=== PATIENT | male | born 1995 | race Caucasian/White ===

== ENCOUNTER 2021-11-01 08:00 | Outpatient (CLI) | payer OTHER ==
--- NOTE | 2021-11-01 22:30 | XRAY Report ---
PROCEDURE: Lumbar Spine 2 View INDICATIONS: LOW BACK PX TECHNIQUE: 3 views of the lumbar spine were acquired. COMPARISON: None. FINDINGS: Bones: 5 [id number] vertebrae are present. There is normal bony alignment. No vertebral body compression fractures. No suspicious bony lesions. Soft tissues: Overlying bowel gas pattern is normal. No suspicious soft tissue calcifications. IMPRESSION: No evidence acute bony abnormality of the lumbar spine. If clinical suspicion and/or symptoms persist, further assessment with repeat plain films or advanced imaging (e.g., CT, MRI, or bone scan) may be helpful for further assessment. Reviewed by: Juvenal Carrasco MD on 11/01/2021 10:28 PM PST Approved by: Juvenal Carrasco MD on 11/01/2021 10:28 PM PST Station ID: [id number]
== END 2021-11-01 23:59 | disposition home or self-care (01) ==
LOC: DI.N 08:00
PROVIDERS: ATTEND Physician Assistant Medical
DX: M54.50 Low back pain, unspecified (principal); G89.29 Other chronic pain

== ENCOUNTER 2023-04-26 19:46 | Outpatient (CLI) | payer OTHER ==
--- NOTE | 2023-04-27 15:12 | XRAY Report ---
PROCEDURE: Finger(s) LT INDICATIONS: OTHER SPRAIN OF LEFT LITTLE FINGER,INITIAL ENCOUNT TECHNIQUE: AP hand, 2 views of the fifth finger(s) acquired. COMPARISON: None. FINDINGS: Bones: No fractures or dislocations. No suspicious bony lesions. Soft tissues: No suspicious soft tissue calcifications or masses. IMPRESSION: No acute bony abnormality. If clinical symptoms persist, consider a follow-up exam in 7-10 days. Reviewed by: Edwin Reina MD on 04/27/2023 3:11 PM PDT Approved by: Edwin Reina MD on 04/27/2023 3:11 PM PDT Station ID: [id number]
== END 2023-04-26 19:47 | disposition home or self-care (01) ==
LOC: DI 19:46
PROVIDERS: ATTEND Physician Assistant Medical
DX: S63.697A Other sprain of left little finger, initial encounter (principal)

== ENCOUNTER 2023-05-19 19:32 | Outpatient (CLI) | payer OTHER ==
--- NOTE | 2023-05-19 21:54 | XRAY Report ---
PROCEDURE: Shuntogram INDICATIONS: SHUNT SERIES - HYDROCEPHALUS TECHNIQUE: AP and lateral views of the skull, chest and abdomen were obtained COMPARISON: None. FINDINGS: Tunneled ventricular peritoneal shunt is in appropriate position and shows no evidence of breaks thro ughout its course. Distal end is coiled in the peritoneal right lower quadrant. There is a buckling o f the catheter projecting over the abdominal right upper quadrant probably at the location of intrape ritoneal transition IMPRESSION: No evidence of break, however, there is buckling of the catheter at the right upper quadrant abdomen, probably at the location of anterior wall penetration Reviewed by: Maxim Leroy MD on 05/19/2023 8:52 PM SHANAE Approved by: Maxim Leroy MD on 05/19/2023 8:52 PM AKREINA Station ID: [id number]
== END 2023-05-19 19:33 | disposition home or self-care (01) ==
LOC: DI 19:32
PROVIDERS: ATTEND Nurse Practitioner Adult Health
DX: G91.9 Hydrocephalus, unspecified (principal)

== ENCOUNTER 2023-10-29 09:44 | Emergency (ER) | payer OTHER ==
[2023-10-29 10:13] VITALS: BP 136/82; O2SAT 98
--- NOTE | 2023-10-29 11:48 | ED Physician Documentation ---
PD HPI SKIN - Stated complaint Stated Complaint: LUMP ON HEAD - Chief complaint Chief Complaint: General - History obtained from History obtained from: Patient - History of Present Illness Timing - onset: How many days ago (3) Timing - details: Gradual onset (mbut getting bigger and much more epainful steadily.) Location: Face (mid forehead at hat line.) Quality / character: Painful, Discolored (red), Raised. No: Vesicular Associated symptoms: No: Fever, Myalgias Similar symptoms before: Has not had sx before Review of Systems Constitutional: denies: Fever, Chills PD PAST MEDICAL HISTORY - Past Medical History Past Medical History: Yes Cardiovascular: None Respiratory: None Neuro: Other Endocrine/Autoimmune: None GI: None : None HEENT: None Psych: None Musculoskeletal: None Derm: None - Past Surgical History Past Surgical History: Yes - Present Medications Home Medications: Ambulatory Orders Medication Instructions Recorded Confirmed Doxycycline Hyclate 100 mg PO BID 7 Days #14 cap 10/29/23 Fexofenadine/Pseudoephedrine 1 each PO DAILY 10/29/23 10/29/23 [Linda-D 24 Hour Tablet] Mupirocin 2% Oint [Bactroban 2% 1 applic TOP TID #15 gm 10/29/23 Oint] Pantoprazole [Protonix] 40 mg PO DAILY 10/29/23 10/29/23 - Allergies Allergies/Adverse Reactions: Allergies Allergy/AdvReac Type Severity Reaction Status Date / Time No Known Drug Allergies Allergy Verified 10/29/23 10:01 - Social History Does the pt smoke?: No Smoking Status: Never smoker Does the pt drink ETOH?: No Does the pt have substance abuse?: No - Immunizations Immunizations are current?: Yes - POLST Patient has POLST: No PD ED PE NORMAL - Vitals Vital signs reviewed: Yes - General General: Alert and oriented X 3, No acute distress, Well developed/nourished - Neck Neck: Supple, no meningeal sign, No adenopathy - Derm Derm: Normal color, Warm and dry, Other (mid forehead at hat line with single tender raisded red area without skin lesion that is moderately tender. Indurated without fluctuance and is only about 1.5 cm diameter. ) Results - Vitals Vitals: Oxygen O2 Source Room air PD Medical Decision Making - ED course Complexity details: considered differential (appears early infection/abscess but not big enough to warrant I&D at this point, does not even feel like fluctuance in the area. Can treat with meds, particularly staph coverage. To wash his hat. ), d/w patient Departure - Departure Disposition: 01 Home, Self Care Clinical Impression: Skin infection Condition: Stable Record reviewed to determine appropriate education?: Yes Instructions: ED Staph Infec Abx Tx Only Prescriptions: Mupirocin 2% Oint [Bactroban 2% Oint] 1 applic TOP TID #15 gm Doxycycline Hyclate 100 mg PO BID 7 Days #14 cap Comments: This looks likely to be an early skin infection. Given the degree of tenderness for the size of it, I would be inclined to think of staph infection as it is more likely to cause a lot of local inflammation. Will treated with antibiotics orally and topically. Additionally use ibuprofen or Tylenol or both if needed for pains. I would anticipate improvement over the next day or 2 and resolved by 3 to 5 days. I sent your prescriptions to your preferred pharmacy. Be sure to wash your hat that you wear at work as it may be contaminated with some germs and could reinfect the sweat glands on the forehead. Forms: PCP List Discharge Date/Time: 10/29/23 12:33
[2023-10-29] MEDS: MUPIROCIN 2% OINT 1 GM TOP STA (12:28)
[2023-10-29] MEDS: DOXYCYCLINE 100 MG TABLET PO STA (12:28)
[2023-10-29] MEDS: IBUPROFEN 600 MG TABLET PO STA (12:28)
== END 2023-10-29 12:33 | disposition home or self-care (01) ==
LOC: ED 09:44
DX: L02.811 Cutaneous abscess of head [any part, except face] (principal)
CPT/HCPCS: 99282; 99283; A9270

== ENCOUNTER 2024-02-29 14:42 | Emergency (ER) | payer OTHER ==
[2024-02-29 15:05] VITALS: BP 136/83; O2SAT 98
[2024-02-29 15:21] LABS: BASOPHILS # (AUTO) 0.1 10^3/uL (0.0-0.1); BASOPHILS % (AUTO) 0.7 %; EOSINOPHILS # (AUTO) 0.2 10^3/uL (0.0-0.7); EOSINOPHILS % (AUTO) 2.2 %; HCT - HEMATOCRIT 46.4 % (42.0-52.0); HGB - HEMOGLOBIN 14.8 g/dL (14.0-18.0); LYMPHOCYTES % (AUTO) 35.2 %; MEAN CORPUSCULAR HEMOGLOBIN 26.8 pg (27.0-31.0); MEAN CORPUSCULAR HGB CONC 31.9 g/dL (32.0-36.0); MEAN CORPUSCULAR VOLUME 84.1 fL (80.0-94.0); MEAN PLATELET VOLUME 9.9 fL (7.4-11.4); MONOCYTES # (AUTO) 0.5 10^3/uL (0.0-1.0); MONOCYTES % (AUTO) 5.3 %; NEUTROPHILS # (AUTO) 4.8 10^3/uL (1.5-6.6); NEUTROPHILS % (AUTO) 56.4 %; PLT - PLATELET COUNT 271 10^3/uL (130-450); RED BLOOD COUNT 5.52 10^6/uL (4.70-6.10); RED CELL DISTRIBUTION WIDTH 12.3 % (12.0-15.0); WHITE BLOOD COUNT 8.6 x10^3/uL (4.8-10.8)
[2024-02-29 15:36] LABS: ALBUMIN 4.9 g/dL (3.2-5.5); ALBUMIN/GLOBULIN RATIO 1.8 (1.0-2.2); BILIRUBIN,TOTAL 0.6 mg/dL (0.2-1.0); CALCIUM 10.5 mg/dL (8.5-10.3); CREATININE 0.8 mg/dL (0.6-1.3); POTASSIUM 4.3 mmol/L (3.5-4.5); TOTAL PROTEIN 7.7 g/dL (6.4-8.9)
== END 2024-02-29 18:57 | disposition left against medical advice (07) ==
LOC: ED 14:42
DX: R10.31 Right lower quadrant pain (principal); R10.32 Left lower quadrant pain; Z53.21 Procedure and treatment not carried out due to patient leaving prior to being seen by health care provider
CPT/HCPCS: 36415; 80053; 83690; 85025

== ENCOUNTER 2024-06-03 14:55 | Outpatient (CLI) | payer OTHER ==
--- NOTE | 2024-06-03 15:57 | Sleep Patient Instructions ---
Sleep Center Visit Summary - Patient Visit Information Reason for Visit: Initial consult for evaluation of sleep disordered breathing and other sleep issues. - Patient Instructions Instructions Attached: Sleep Study, Sleep Study Home Monitor Additional Instructions: You will be completing a sleep study, either an in-lab polysomnography (PSG) or home sleep study (HST). You will follow-up in the sleep care office after the sleep study is completed to hear the results and talk about therapy, if needed. You will be called by our office staff to schedule this appointment, but you may contact us with any questions. - Clinic Information Contact: [facility] [address] [place] [phone] [email or web address] T: [phone]
--- NOTE | 2024-06-03 16:00 | SLEEP CARE CONSULTATION ---
Information from patient questionnaire entered by Evelyn Echeverria. I have reviewed and concur with the information entered by Evelyn Echeverria. This document represents the service I personally performed and the decisions made by me, Katarina Brewster ARNP. History of Present Illness Service Date and Time: 06/03/2024 5962 Reason for Visit: New patient Chief Complaint: reports: Unrefreshed sleep, Snoring Date of Onset: For years Usual bedtime: 8:30 Time it takes to fall asleep: Up to 4 - 5 hours Snores at night: Yes Observed to quit breathing while asleep: No Sleeps alone due to snoring: No Number of times waking at night: Once Reasons for waking at night: reports: Bathroom, Other (Unknown). denies: Choking, Gasping for air Toss, Turn, or Twitch while sleeping: Yes Recalls having dreams: No Usually gets out of bed at: 6:30 Feels refreshed in the morning: No Morning headache: No Sleepy or fatigued during the day: Yes Ever fallen asleep while driving: No Takes day naps: No Dreams during day naps: No Prior sleep studies: No Additional HPI information: I had the pleasure of seeing MACKENZIE GAYTAN today regarding the possibility of him having a sleep disorder. His current complaints are snoring and unrefreshed sleep. He says he always struggles with sleep. He has trouble with going to sleep and staying asleep. He will wake up and not be able to fall asleep. He thinks his vitamin D is low and he also has a toddler at home. 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 He says he snores according to his parents. His never has complained about his snoring. He is very tired during the day. He gets "restless legs" if he is sleeping on his back. 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 Patient is and lives in [place]. Have you smoked in the past 12 months: No Quit date: 2015 Alcohol use: No Caffeine use: Yes Caffeine amount and frequency: One cup in the morning 3 times a week Family History Family history of sleep disordered breathing: Yes Family Hx Sleep Apnea: Father: Snoring Allergies and Home Medications Known drug allergies: No Drug allergies reviewed: Yes Home medication list reviewed: Yes (as listed) Allergy and home medication list: Allergies No Known Drug Allergies Allergy (Verified 06/03/24 15:53) Home Medications Fexofenadine/Pseudoephedrine [Linda-D 24 Hour Tablet] 1 each PO DAILY 10/29/23 [History] Pantoprazole [Protonix] 40 mg PO DAILY 10/29/23 [History] Nasacort See Rx Instructions .ROUTE .COMPLEX 06/03/24 [History] Review of Systems Weight gain over past 5 years: 40 Cardiovascular: denies: high blood pressure Gastrointestinal: reports: heartburn Urinary: reports: frequency Neurological: reports: headaches Psychiatric: reports: anxiety, depression Ear/Nose/Throat: reports: nasal congestion, tonsillectomy, wisdom teeth removed Physical Exam Vital signs obtained and entered by: Katarina Butterfield NP Blood Pressure: 127/85 Cuff size: long (left arm) Heart Rate: 85 O2 Saturation: 98 Height: 5 ft 6 in Weight: 194 lb 6.4 oz Body Mass Index: 31.4 BMI Classification: Obese Neck circumference: 15 Mouth and throat: narrow oropharynx Soft palate: normal Hard palate: normal Uvula: normal Uvula visualization: 0% Mallampati Class IV Tongue: enlarged in size with teeth venegas on lateral edges Tonsils: absent bilaterally Neck: normal w/o lymphadenopathy or thyromegaly Heart: regular rate and rhythm Lungs: clear bilaterally Impression and Plan 1. Suspected Obstructive Sleep Apnea-Hypopnea Syndrome, as suggested by a history of loud and irregular snoring and unrefreshed sleep. Narrow oropharynx and obesity are common predisposing factors for obstructive sleep apnea-hypopnea syndrome. I recommend proceeding to polysomnography to confirm the diagnosis and to assess severity. If the patient has significant sleep disordered breathing, a manual CPAP titration study will also be performed to find the optimal treatment pressure. I informed the patient of what the sleep studies involve and after some discussion, obtained agreement to proceed. The pathophysiology of obstructive sleep apnea-hypopnea syndrome was discussed with the patient and health risks of cardiovascular and cerebrovascular disease if not treated. Risks of drowsy driving discussed in detail and patient advised to avoid long distance driving and to pack puller at the first sign of drowsiness. P atient agreed to plan. * Schedule polysomnography * Avoid long distance driving or driving when feeling sleepy. * Avoid alcohol, sedative and muscle relaxant around bedtime. * Attempt to lose weight. * Review instructions provided by trained office staff on how to prepare for the sleep study. * Return for follow-up after sleep study completed. Counseling Topics: Weight loss health impact Plan: sleep study and follow up Visit Type: In Office Time Spent with Patient (minutes): 30 Provider Statement: I spent 100% of the Face to Face Visit with the patient with greater than 50% spent counseling the patient and coordination of care.
[2024-06-03 16:07] VITALS: BP 127/85; O2SAT 98
== END 2024-06-03 14:56 | disposition home or self-care (01) ==
LOC: SC 14:55
PROVIDERS: ATTEND Nurse Practitioner Family
DX: R06.83 Snoring (principal); G47.8 Other sleep disorders; E66.9 Obesity, unspecified; Z68.31 Body mass index [BMI] 31.0-31.9, adult
CPT/HCPCS: 99203; 99212